=== PATIENT | male | born 1990 | race Caucasian/White ===

== ENCOUNTER 2023-04-08 18:19 | Emergency (ER) | payer OTHER, SELFPAY ==
[2023-04-08 18:25] VITALS: BP 163/105; PULSE 83; RESP 18; TEMP 36.8; O2SAT 100; BMI 27.3
--- NOTE | 2023-04-08 18:52 | ED.ABDPAIN ---
HPI - Abdominal Pain General Time Seen by Provider: 18:52 Date Seen: 04/08/23 Chief Complaint: Abdominal Pain Stated Complaint: Abdominal pain Time Seen by Provider: 04/08/23 18:49 Source: patient and RN notes reviewed Mode of arrival: ambulatory Limitations: no limitations History of Present Illness HPI narrative: Patient is a 33-year-old male coming in with concern of diverticulitis with left-sided lower abdominal pain. He has had pain for at least a few weeks ill, it is intensified, actually had some blood with a stool this morning, had an emesis this morning and did noted a little blood in it. He states around age 17 he was at [facility] and had diverticulitis and had a percutaneous drain due to abscess formation. He believes the drain was in for about 2 weeks. With his current symptoms he states he has a fever when the pain is severe. Basically eating once a day, has not eaten anything today due to the pain in the nausea. He has suspected that he has had other episodes of diverticulitis with some abdominal discomfort, diarrheal or softer stools. He did not come in until now due to insurance issues. He has had no other abdominal surgery. The symptoms have been severe enough that they have been preventing him from working. MD elicited complaint: abdominal pain Related Data Home Medications Medication Instructions Recorded Confirmed No Known Home Medications 04/08/23 04/08/23 Previous Rx's Medication Instructions Recorded amoxicillin 875 mg-potassium 1 tab PO BID #19 tabs 04/08/23 clavulanate 125 mg tablet Allergies Allergy/AdvReac Type Severity Reaction Status Date / Time No Known Drug Allergies Allergy Verified 04/08/23 18:01 Review of Systems Status of ROS Reports: 6 or more systems reviewed and unremarkable except as noted in History and below [facility] Social History Smoking Status: Never smoker Do you use any of these nicotine containing products: None Second hand tobacco smoke exposure: No How often do you have a drink containing alcohol: never How often do you have six or more drinks on one occasion: Never AUDIT-C Alcohol total score: 0 Non-prescribed substance use: denies use service: No Exam Const: Vital Signs, click to edit/add: Vital Signs - 24 hr 04/08/23 18:25 04/08/23 18:57 Temperature 98.2 F Pulse Rate [Right Pulse Oximeter] 83 Respiratory Rate 18 Blood Pressure [Ri ght Upper Arm] 163/105 H Pulse Oximetry 100 98 Oxygen Delivery Me thod Room Air 33-year-old male that is alert, interactive, no apparent distress sitting in his bed in exam room 3. Sclera clear, conjugate gaze, able to speak in complete sentences. Lungs are clear with good air entry, no tachypnea or accessory muscle use. CV regular rate and rhythm, no murmur, normal S1 and S2. Abdomen with diminished bowel sounds but not distended. He has localizing left lower quadrant tenderness without any definite palpable mass, no true rebound or guarding at this time but his pain does localize to the left lower quadrant. Patient was ambulatory into the ED of his own accord. Documenting provider has reviewed patient's vital signs: yes Course Course ED Course: Patient states his pain is low level at this time unless I am pressing on his abdomen. Will initiate normal saline, 4 mg IV Zofran for his nausea which he still has. Will proceed with IV placement for CT abdomen pelvis with IV contrast, he is aware that he will be getting this to further delineate his abdominal pathology. Will also get basic labs. He will let me know if his pain is intensifying. Reevaluation(s) Time of Reevaluation #1: 21:06 Reevaluation #1: Reviewed patient's labs CN CT findings. He has uncomplicated diverticulitis at this point. We will try Augmentin oral outpatient. His white count is normal. Do not feel he needs hospitalization. States he did have a colonoscopy at 1 point. We did discuss follow-up in clinic, he may need to consider repeat colonoscopy once his symptoms have settled appropriately. We also did discuss if he is having recurrent diverticulitis in the same area, surgery for surgical removal of the affected area could be considered. Ultimately this is the surgeons decision but referral to a surgeon could be considered if he has recurrent episodes. Vital Signs Vital signs: Initial Vital Signs Temperature 98.2 F 04/08/23 18:25 Temperature Source Temporal Artery Scan 04/08/23 18:25 Pulse Rate 83 04/08/23 18:25 Respiratory Rate 18 04/08/23 18:25 Blood Pressure 163/105 H 04/08/23 18:25 Blood Pressure Mean 124 H 04/08/23 18:25 Blood Pressure Position Sitting 04/08/23 18:25 Pulse Oximetry 100 04/08/23 18:25 Oxygen Delivery Method Room Air 04/08/23 18:25 Vital Signs Temperature 98.2 F 04/08/23 18:25 Pulse Rate 83 04/08/23 18:25 Respiratory Rate 18 04/08/23 18:25 Blood Pressure 163/105 H 04/08/23 18:25 Pulse Oximetry 100 04/08/23 18:25 Oxygen Delivery Method Room Air 04/08/23 18:25 Temperature 98.2 F 04/08/23 18:25 Pulse Rate 83 04/08/23 18:25 Respiratory Rate 18 04/08/23 18:25 Blood Pressure 163/105 H 04/08/23 18:25 Pulse Oximetry 98 04/08/23 18:57 Oxygen Delivery Method Room Air 04/08/23 18:25 Medications Administered Medications: Generic Name Dose Route Start Last Admin Trade Name Freq PRN Reason Stop Dose Admin Sodium Chloride 1,000 mls @ 500 mls/hr 04/08/23 18:58 04/08/23 19:17 0.9 % Sodium Chloride 1000 Ml IV 04/08/23 20:57 500 mls/hr .Q2H MEREDITH Administration Ondansetron HCl 4 mg 04/08/23 18:58 04/08/23 19:17 Ondansetron 2 Mg/Ml Inj IVP 04/08/23 18:59 4 mg ONCE ONE Administration MDM - Abdominal Pain Lab Data Attestation: I reviewed the patient's lab results. Labs: Lab Results 04/08/23 Range/Units 19:16 WBC 9.38 (4.50-11.00) K/uL RBC 4.96 (4.30-5.90) m/uL Hgb 14.3 (13.5-17.5) gm/dL Hct 43.2 (37.0-53.0) % MCV 87 (80-100) fL MCH 29 (26-34) pg MCHC 33 (32-36) gm/dL RDW Coeff of Simran 12.6 (11.5-15.5) % Plt Count 185 (140-440) K/uL Neut % (Auto) 74.3 H (42.0-72.0) % Lymph % (Auto) 18.7 L (20-44) % [place] % (Auto) 5.7 (0.0-11.0) % Eos % (Auto) 0.5 (0.0-7.0) % Baso % (Auto) 0.3 (0.0-3.0) % Neut # (Auto) 7.00 (1.7-7.0) K/uL Lymph # (Auto) 1.80 (0.90-2.90) K/uL [place] # (Auto) 0.50 (0.00-0.90) K/UL Eos # (Auto) 0.05 (0.00-0.50) K/uL Baso # (Auto) 0.03 (0.00-0.30) K/uL Abs Immat Gran (auto) 0.05 (0.00-0.30) K/uL Imm/Tot Granulo (auto) 0.5 % Sodium 140 (135-149) mmol/L Potassium 3.6 (3.6-5.1) mmol/L Chloride 106 (96-114) mmol/L Carbon Dioxide 25 (20-32) mmol/L Anion Gap 9 (7-15) mEq/L BUN 10 (5-24) mg/dL Creatinine 0.6 (0.5-1.5) mg/dL Estimated Creat Clear 180.81 Estimated GFR 131 ml/min Glucose 96 (60-115) mg/dL Lactate 2.0 H (0.5-1.9) mmol/L Calcium 8.5 (8.4-10.6) mg/dL Total Bilirubin 0.7 (0.1-1.5) mg/dL AST 58 H (12-35) U/L ALT 41 (4-50) U/L Alkaline Phosphatase 74 (40-150) U/L C-Reactive Protein < 0.5 L (0.5-1.0) mg/dL Total Protein 7.8 (6.0-8.3) g/dL Albumin 4.8 (3.3-5.0) g/dL Imaging Data CT scan - abdomen: Attestation: I have reviewed the pertinent imaging results. Radiologist's impression: Patient: NELI ENNIS Facility:?[facility] Patient ID:?[id number] Site Patient ID:?[id number]. Site :?[id number] Study:?[id number] 7:55:38 PM Ordering Physician:Lon Gross Final Report: INDICATION: Left lower quadrant abdominal pain. TECHNIQUE: CT abdomen and pelvis acquired with 93 cc Isovue 370 IV contrast. COMPARISON: None. FINDINGS: Lower chest: Scattered atelectasis. Liver: Unremarkable. Normal in size and attenuation. No suspicious masses. Gallbladder and bile ducts: Unremarkable. No stones or inflammation. No biliary dilatation. Pancreas: Unremarkable. No mass or inflammation. Spleen: Unremarkable. Normal in size. No masses. Adrenal glands: Unremarkable. No nodules. Kidneys: Unremarkable. No suspicious masses, stones, or hydronephrosis. GI tract: Colonic diverticulosis. Mild wall thickening of the proximal sigmoid colon. Normal in caliber. No sign of mass or inflammation. Normal appendix. Vasculature: Abdominal aorta is normal in caliber. Mesenteric arteries are patent. Lymph nodes: No lymphadenopathy. Peritoneum/Abdominal Wall: Unremarkable. No sign of mass or infiltration. No free air or significant free fluid. Pelvis: Unremarkable. Bones: Unremarkable for age. IMPRESSION: Colonic diverticulosis with chronic proximal sigmoid diverticulitis. No definite CT evidence of acute diverticulitis, or drainable fluid collections. Please note that all CT scans at this facility use dose modulation, iterative reconstruction, and/or weight-based dosing when appropriate to reduce radiation dose to as low as reasonably achievable. Dictated by Ernie Mendez MD @ 04/08/2023 8:50:39 PM (Electronic Signature) Discharge Plan Discharge Clinical Impression: Diverticulitis Patient Disposition: Home, Self-Care Condition: Stable Instructions: Diverticulitis (ED), Diverticulitis Diet (ED) Additional Instructions: Need to take oral antibiotics, next dose is due tomorrow morning. Follow handouts. Do recommend recheck with your primary care provider in clinic within the next week. Follow-up colonoscopy and consideration for surgical consultation regarding recurrent diverticulitis needs to be considered. If you are not improving with the oral antibiotics, develops fevers, have increasing abdominal pain, do need to be re-evaluated in the ER. Can use Tylenol and ibuprofen per bottle directions as needed for pain control. Activity Level: Activity as Tolerated Prescriptions: New amoxicillin-pot clavulanate 875-125 mg tablet 1 tab PO BID Qty: 19 0RF No Action No Known Home Medications Follow Up/Referrals: Provider,Not a Local [Primary Care Provider] - Stand Alone Forms: [facility] Info Instructions
[2023-04-08 18:57] VITALS: O2SAT 98
--- NOTE | 2023-04-08 18:58 | CRLHL7_ITS ---
For Patients: As a result of the Century Cures Act, medical imaging exams and procedure reports are released immediately into your electronic medical record. You may view this report before your referring provider. If you have questions, please contact your health care provider. INDICATION: Left lower quadrant abdominal pain. TECHNIQUE: CT abdomen and pelvis acquired with 93 cc Isovue 370 IV contrast. COMPARISON: None. FINDINGS: Lower chest: Scattered atelectasis. Liver: Unremarkable. Normal in size and attenuation. No suspicious masses. Gallbladder and bile ducts: Unremarkable. No stones or inflammation. No biliary dilatation. Pancreas: Unremarkable. No mass or inflammation. Spleen: Unremarkable. Normal in size. No masses. Adrenal glands: Unremarkable. No nodules. Kidneys: Unremarkable. No suspicious masses, stones, or hydronephrosis. GI tract: Colonic diverticulosis. Mild wall thickening of the proximal sigmoid colon. Normal in caliber. No sign of mass or inflammation. Normal appendix. Vasculature: Abdominal aorta is normal in caliber. Mesenteric arteries are patent. Lymph nodes: No lymphadenopathy. Peritoneum/Abdominal Wall: Unremarkable. No sign of mass or infiltration. No free air or significant free fluid. Pelvis: Unremarkable. Bones: Unremarkable for age. IMPRESSION: Colonic diverticulosis with chronic proximal sigmoid diverticulitis. No definite CT evidence of acute diverticulitis, or drainable fluid collections. Please note that all CT scans at this facility use dose modulation, iterative reconstruction, and/or weight-based dosing when appropriate to reduce radiation dose to as low as reasonably achievable. Dictated by Ernie Mendez MD @ 04/08/2023 8:50:39 PM (Electronically Signed)
[2023-04-08] MEDS: 0.9 % SODIUM CHLORIDE 1000 ml 1,000 ML 500 ML IV (19:17)
[2023-04-08] MEDS: ONDANSETRON 2 MG/ML inj 4 MG IVP (19:17)
[2023-04-08 19:27] LABS: Basophils Absolute Auto 0.03 K/uL (0.00-0.30); Basophils Percent Auto 0.3 % (0.0-3.0); Eosinophils Absolute Auto 0.05 K/uL (0.00-0.50); Eosinophils Percent Auto 0.5 % (0.0-7.0); Hematocrit 43.2 % (37.0-53.0); Hemoglobin* 14.3 gm/dL (13.5-17.5); Immature Granulocytes Abs Auto 0.05 K/uL (0.00-0.30); Immature Granulocytes Pct Auto 0.5 %; Lymphocytes Percent Auto 18.7 % (20-44); Mean Corpuscular HGB Conc 33 gm/dL (32-36); Mean Corpuscular Hemoglobin 29 pg (26-34); Mean Corpuscular Volume 87 fL (80-100); Monocytes Percent Auto 5.7 % (0.0-11.0); Neutrophils Percent Auto 74.3 % (42.0-72.0); Platelet Count* 185 K/uL (140-440); RDW Coefficient of Variation % 12.6 % (11.5-15.5); Red Blood Count 4.96 m/uL (4.30-5.90); White Blood Count* 9.38 K/uL (4.50-11.00)
[2023-04-08 19:33] LABS: Slide Review Reflex No
[2023-04-08 19:39] LABS: Albumin* 4.8 g/dL (3.3-5.0); Chloride* 106 mmol/L (96-114); Sodium* 140 mmol/L (135-149)
[2023-04-08 19:40] LABS: Potassium* 3.6 mmol/L (3.6-5.1)
[2023-04-08 19:42] LABS: Creatinine* 0.6 mg/dL (0.5-1.5); Est. Creatinine Clearance* 180.81; Estimated Glomerular Filt Rate 131 ml/min
[2023-04-08 19:43] LABS: Alanine Aminotransferase* 41 U/L (4-50); Alkaline Phosphatase* 74 U/L (40-150); Anion Gap 9 mEq/L (7-15); Aspartate Amino Transferase* 58 U/L (12-35); Bilirubin Total* 0.7 mg/dL (0.1-1.5); Blood Urea Nitrogen* 10 mg/dL (5-24); Calcium* 8.5 mg/dL (8.4-10.6); Carbon Dioxide* 25 mmol/L (20-32); Glucose* 96 mg/dL (60-115); Total Protein* 7.8 g/dL (6.0-8.3)
[2023-04-08 19:46] LABS: C Reactive Protein* < 0.5 mg/dL (0.5-1.0)
[2023-04-08] MEDS: AMOXICILLIN/CLAVULANATE 875 mg/125 mg TABLET PO (21:20)
== END 2023-04-08 21:22 | disposition home or self-care (01) ==
PROVIDERS: Emergency Provider Family Medicine
DX: K57.92 Diverticulitis of intestine, part unspecified, without perforation or abscess without bleeding (principal)
CPT/HCPCS: 36415; 74177; 80053; 83605; 85025; 86140; 94761; 96361; 96374; 99284; 99285; A9270; J2405; J7030; Q9967

== ENCOUNTER 2023-07-04 19:01 | Emergency (ER) | payer OTHER, SELFPAY ==
[2023-07-04 19:10] VITALS: BP 148/89; PULSE 117; RESP 18; TEMP 37.6; O2SAT 99; BMI 27.3
--- NOTE | 2023-07-04 19:33 | ED_ITS ---
HPI - Abdominal Pain General Time Seen by Provider: 19:33 Date Seen: 07/04/23 Chief Complaint: Abdominal Pain Stated Complaint: abdominal pain Time Seen by Provider: 07/04/23 19:33 Source: patient and RN notes reviewed Mode of arrival: ambulatory Limitations: no limitations History of Present Illness HPI narrative: The patient is a very pleasant 33-year-old gentleman with a history of complicated diverticulitis at the age of 17, percutaneous drainage for 2 weeks at that time who comes to the emergency room for evaluation regarding right lower quadrant pain. Patient noted the onset of pain near the umbilicus yesterday that he describes as sharp. Today he has pain in the right lower quadrant. He notes that he tried to work but even moving or riding in his truck he has increased discomfort. He is noted that he has had constipation over the past couple days. He states that abdominal pain is not unusual for him but he usually feels it on the left. He states that the ages 17 he had diverticulitis with an abscess that resulted in hospitalization, insertion of her percutaneous drain, antibiotics and then discharged home on pain medicine and antibiotics. His last diverticulitis flare was in April which was treated with Augmentin. Patient does feel warm but does not know if he is been running a fever. He states that he has not really been eating or drinking over the last 2 days. He states that he has pain persistently and was told that this was scar tissue. He states he usually tries to work through it but because this pain was unusual for him he wanted to have it checked out. At home he is youngest son has RSV and the other children have another did virus but he states that he has no symptoms including no evidence of a cough runny nose. Patient had been sober for quite some time and then notes occasional drinking and states that after that he will have shakiness and feel poorly and experience right upper quadrant pain. He has not had any alcohol over the past 8 weeks. He notes that when he was very young he had an alcohol problem. Patient denies alcohol abuse at this time and denies having any addiction to oxycodone which she used for treatment of his diverticular pain in his teenage years. Movement definitely increases his discomfort. Sitting still is the best position for him. Related Data Home Medications Medication Instructions Recorded Confirmed No Known Home Medications 04/08/23 07/04/23 Allergies Allergy/AdvReac Type Severity Reaction Status Date / Time No Known Drug Allergies Allergy Verified 07/04/23 20:12 Review of Systems Status of ROS Reports: 10 or more systems reviewed and unremarkable except as noted in History and below Const Reports: chills and fatigue; Denies: fever ENMT Denies: neck pain, throat swelling, nasal discharge or nasal congestion Cardio Denies: chest pain or shortness of breath with exertion Resp Denies: shortness of breath or cough GI Reports: abdominal pain, nausea, constipation and mucus in stool; Denies: vomiting or diarrhea Denies: painful urination Musculo Denies: back pain or neck pain Endo Reports: fatigue Allergy/Immuno Denies: throat swelling PFSH PFSH Social History Smoking Status: Current every day smoker Second hand tobacco smoke exposure: No How often do you have a drink containing alcohol: never How often do you have six or more drinks on one occasion: Never AUDIT-C Alcohol total score: 0 Non-prescribed substance use: denies use service: No Exam Narrative: Exam Narrative: Alert and oriented. Stoic in appearance and limiting movement. However very cooperative. External ears eyes nose clear. Oral cavity with tacky mucous membranes. Neck is supple without lymphadenopathy. Range of motion is full. Heart with a tachycardic rate but normal rhythm. Lungs are clear bilaterally. Abdomen shows right lower quadrant tenderness positive for rebound. Straight leg raise increases discomfort. Positive for pain in the right lower quadrant with percussion over the right CVA. He is able to move all extremities. No unusual rashes are noted. Const: Vital Signs, click to edit/add: Vital Signs - 24 hr 07/04/23 19:10 07/04/23 21:26 Temperature 99.7 F H Pulse Rate [Left P ulse Oximeter] 117 H 82 Respiratory Rate 18 18 Blood Pressure [Ri ght Upper Arm] 148/89 H 136/87 Pulse Oximetry 99 97 Oxygen Delivery Me thod Room Air Room Air Documenting provider has reviewed patient's vital signs: yes Course Course ED Course: Differential diagnosis includes but is not limited to colitis, constipation, appendicitis, internal hernia, small-bowel obstruction, diverticulitis, ureteral colic/nephrolithiasis. Patient will have IV inserted and be given 1 L of normal saline, Toradol 15 mg, Zofran 4 mg IV. Will proceed with CT of the abdomen and pelvis with contrast. Will check CBC, comprehensive panel, CRP, urinalysis as well as COVID/influenza/RSV. Reevaluation(s) Reevaluation #1: Patient notes improvement of his abdominal pain with Toradol. In addition pulse has now normalized to 82 after 1 L of normal saline. Vital Signs Vital signs: Initial Vital Signs Temperature 99.7 F H 07/04/23 19:10 Temperature Source Temporal Artery Scan 07/04/23 19:10 Pulse Rate 117 H 07/04/23 19:10 Respiratory Rate 18 07/04/23 19:10 Blood Pressure 148/89 H 07/04/23 19:10 Blood Pressure Mean 108 H 07/04/23 19:10 Blood Pressure Position Sitting 07/04/23 19:10 Pulse Oximetry 99 07/04/23 19:10 Oxygen Delivery Method Room Air 07/04/23 19:10 Vital Signs Temperature 99.7 F H 07/04/23 19:10 Pulse Rate 117 H 07/04/23 19:10 Respiratory Rate 18 07/04/23 19:10 Blood Pressure 148/89 H 07/04/23 19:10 Pulse Oximetry 99 07/04/23 19:10 Oxygen Delivery Method Room Air 07/04/23 19:10 Temperature 99.7 F H 07/04/23 19:10 Pulse Rate 82 07/04/23 21:26 Respiratory Rate 18 07/04/23 21:26 Blood Pressure 136/87 07/04/23 21:26 Pulse Oximetry 97 07/04/23 21:26 Oxygen Delivery Method Room Air 07/04/23 21:26 Medications Administered Medications: Discontinued Medications Generic Name Dose Route Start Last Admin Trade Name Freq PRN Reason Stop Dose Admin Sodium Chloride 1,000 mls @ 1,000 mls/hr 07/04/23 19:44 07/04/23 20:45 0.9 % Sodium Chloride 1000 Ml IV 07/04/23 20:43 Infused .Q1H MEREDITH Infusion Ketorolac Tromethamine 15 mg 07/04/23 19:44 07/04/23 20:04 Ketorolac 15 Mg/Ml Inj IVP 07/04/23 19:45 15 mg ONCE ONE Administration Ondansetron HCl 4 mg 07/04/23 19:44 07/04/23 20:04 Ondansetron 2 Mg/Ml Inj IVP 07/04/23 19:45 4 mg ONCE ONE Administration MDM - Abdominal Pain MDM Narrative Medical decision making narrative: 1. Sigmoid diverticulitis-no evidence of abscess or perforation. CRP elevated at 8.4 and white cell count is 11.29. Will place patient on Augmentin for treatment at this time. This has worked well for him in the past. Given patient's history of diverticulitis with fairly persistent chronic pain over the years I do suggest that he follow-up with our surgeons. At the very least he will need a colonoscopy to evaluate this area of recurrent infection. He may need surgery for correction. I was surprised that the appendix was normal tonight as patient had right lower quadrant pain which is unusual for him. Appendix was seen normal by our radiologist. 2. Dehydration-patient had minimal p.o. intake over the last few days. 1 L of normal saline was given and tachycardia resolved. I do not think tachycardia was secondary to a septic type picture. 3. RSV-patient was told he had RSV. He is asymptomatic at this time. Positive contact in his son. 2. Disposition-home at this time. Patient will have Augmentin 875 mg p.o. b.i.d. times 10 days. Zofran 4 mg ODT Q 8-12 hours p.r.n. nausea 10., [place] 5/325 1-2 tablets q.4-6 hours p.r.n. 12. With no refills. These 3 medications were given via [employer]. Patient is to return to the emergency room for elevated fever, vomiting, worsening symptoms as needed. He has also been instructed to start on a stool softener as he will be using [place]. Medical Records Attestation: I reviewed the patient's medical records. Lab Data Attestation: I reviewed the patient's lab results. Labs: Lab Results 07/04/23 07/04/23 Range/Units 20:00 20:00 WBC 11.29 H (4.50-11.00) K/uL RBC 5.09 (4.30-5.90) m/uL Hgb 14.9 (13.5-17.5) gm/dL Hct 44.5 (37.0-53.0) % MCV 87 (80-100) fL MCH 29 (26-34) pg MCHC 34 (32-36) gm/dL RDW Coeff of Simran 12.5 (11.5-15.5) % Plt Count 181 (140-440) K/uL Neut % (Auto) 79.9 H (42.0-72.0) % Lymph % (Auto) 10.7 L (20-44) % [place] % (Auto) 8.8 (0.0-11.0) % Eos % (Auto) 0.3 (0.0-7.0) % Baso % (Auto) 0.1 (0.0-3.0) % Neut # (Auto) 9.00 H (1.7-7.0) K/uL Lymph # (Auto) 1.20 (0.90-2.90) K/uL [place] # (Auto) 1.00 H (0.00-0.90) K/UL Eos # (Auto) 0.00 (0.00-0.50) K/uL Baso # (Auto) 0.00 (0.00-0.30) K/uL Abs Immat Gran (auto) 0.00 (0.00-0.30) K/uL Imm/Tot Granulo (auto) 0.2 % Sodium 138 (135-149) mmol/L Potassium 3.6 (3.6-5.1) mmol/L Chloride 103 (96-114) mmol/L Carbon Dioxide 24 (20-32) mmol/L Anion Gap 11 (7-15) mEq/L BUN 16 (5-24) mg/dL Creatinine 0.7 (0.5-1.5) mg/dL Estimated Creat Clear 154.98 Estimated GFR 125 ml/min Glucose 108 (60-115) mg/dL Lactate 0.8 (0.5-1.9) mmol/L Calcium 9.4 (8.4-10.6) mg/dL Total Bilirubin 1.9 H (0.1-1.5) mg/dL AST 28 (12-35) U/L ALT 35 (4-50) U/L Alkaline Phosphatase 60 (40-150) U/L C-Reactive Protein 8.4 H Cancelled (0.5-1.0) mg/dL Total Protein 8.7 H (6.0-8.3) g/dL Albumin 5.2 H (3.3-5.0) g/dL Lipase 28 (23-300) U/L SARS-CoV-2 (PCR) Negative SARS-CoV-2 (Negative) Influenza Type A (PCR) Negative PCR FLU A (Negative) Influenza Type B (PCR) Negative PCR FLU B (Negative) RSV (PCR) POSITIVE PCR RSV A (Negative) Imaging Data CT scan - abdomen: Attestation: I have reviewed the pertinent imaging results. Radiologist's impression: Lower chest: Unremarkable. Liver: Unremarkable. Normal in size and attenuation. No suspicious masses. Gallbladder and bile ducts: Unremarkable. No stones or inflammation. No biliary dilatation. Pancreas: Unremarkable. No mass or inflammation. Spleen: Unremarkable. Normal in size. No masses. Adrenal glands: Unremarkable. No nodules. Kidneys: Unremarkable. No suspicious masses, stones, or hydronephrosis. GI tract: Acute inflammation of a diverticulum in the sigmoid colon. Remainder of the GI tract is unremarkable. Normal appendix. Vasculature: Abdominal aorta is normal in caliber. Mesenteric arteries are patent. Lymph nodes: No lymphadenopathy. Peritoneum/Abdominal Wall: Unremarkable. No sign of mass or infiltration. No free air or significant free fluid. Pelvis: Unremarkable. Bones: Unremarkable for age. IMPRESSION: Acute uncomplicated sigmoid diverticulitis. Discharge Plan Discharge Clinical Impression: Diverticulitis Patient Disposition: Home, Self-Care Condition: Improved Additional Instructions: Start antibiotic Augmentin tonight for the treatment of diverticulitis. Zofran is an anti nausea medicine that you may use as needed. Try to push fluids and stay hydrated. [place] also known as hydrocodone and Tylenol may be used as needed for pain sparingly. This is a narcotic medication and therefore can cause addiction. It will also cause constipation and thus I suggest you start on a stool softener such as MiraLax or Colace. Follow-up with our surgeons. All of them are fantastic. Prem Srivastava or Reggie. You will likely need a colonoscopy after you have healed for this particular infection. Return to the emergency room for fever, worsening pain, vomiting and as needed. Prescriptions: No Action No Known Home Medications Follow Up/Referrals: Provider,Not a Local [Primary Care Provider] - Stand Alone Forms: [employer] Info Instructions
--- NOTE | 2023-07-04 19:44 | CRLHL7_ITS ---
For Patients: As a result of the Century Cures Act, medical imaging exams and procedure reports are released immediately into your electronic medical record. You may view this report before your referring provider. If you have questions, please contact your health care provider. INDICATION: Right lower quadrant abdomen pain. TECHNIQUE: CT abdomen and pelvis acquired with 93 cc Isovue 370 IV contrast. COMPARISON: None. FINDINGS: Lower chest: Unremarkable. Liver: Unremarkable. Normal in size and attenuation. No suspicious masses. Gallbladder and bile ducts: Unremarkable. No stones or inflammation. No biliary dilatation. Pancreas: Unremarkable. No mass or inflammation. Spleen: Unremarkable. Normal in size. No masses. Adrenal glands: Unremarkable. No nodules. Kidneys: Unremarkable. No suspicious masses, stones, or hydronephrosis. GI tract: Acute inflammation of a diverticulum in the sigmoid colon. Remainder of the GI tract is unremarkable. Normal appendix. Vasculature: Abdominal aorta is normal in caliber. Mesenteric arteries are patent. Lymph nodes: No lymphadenopathy. Peritoneum/Abdominal Wall: Unremarkable. No sign of mass or infiltration. No free air or significant free fluid. Pelvis: Unremarkable. Bones: Unremarkable for age. IMPRESSION: Acute uncomplicated sigmoid diverticulitis. Please note that all CT scans at this facility use dose modulation, iterative reconstruction, and/or weight-based dosing when appropriate to reduce radiation dose to as low as reasonably achievable. Dictated by Amos Zavala MD @ 07/04/2023 9:11:53 PM (Electronically Signed)
[2023-07-04] MEDS: ONDANSETRON 2 MG/ML inj 4 MG IVP (20:04)
[2023-07-04] MEDS: 0.9 % SODIUM CHLORIDE 1000 ml 1,000 ML IV (20:04)
[2023-07-04] MEDS: KETOROLAC 15 MG/ML inj IVP (20:04)
[2023-07-04 20:05] LABS: Lactate* 0.8 mmol/L (0.5-1.9)
[2023-07-04 20:08] LABS: Basophils Percent Auto 0.1 % (0.0-3.0); Eosinophils Percent Auto 0.3 % (0.0-7.0); Hematocrit 44.5 % (37.0-53.0); Hemoglobin* 14.9 gm/dL (13.5-17.5); Immature Granulocytes Pct Auto 0.2 %; Lymphocytes Percent Auto 10.7 % (20-44); Mean Corpuscular HGB Conc 34 gm/dL (32-36); Mean Corpuscular Hemoglobin 29 pg (26-34); Mean Corpuscular Volume 87 fL (80-100); Monocytes Percent Auto 8.8 % (0.0-11.0); Neutrophils Percent Auto 79.9 % (42.0-72.0); Platelet Count* 181 K/uL (140-440); RDW Coefficient of Variation % 12.5 % (11.5-15.5); Red Blood Count 5.09 m/uL (4.30-5.90); White Blood Count* 11.29 K/uL (4.50-11.00)
[2023-07-04 20:17] LABS: Slide Review Reflex No
[2023-07-04 20:27] LABS: Albumin* 5.2 g/dL (3.3-5.0); Chloride* 103 mmol/L (96-114)
[2023-07-04 20:28] LABS: Potassium* 3.6 mmol/L (3.6-5.1); Sodium* 138 mmol/L (135-149)
[2023-07-04 20:30] LABS: Alkaline Phosphatase* 60 U/L (40-150); Anion Gap 11 mEq/L (7-15); Aspartate Amino Transferase* 28 U/L (12-35); Bilirubin Total* 1.9 mg/dL (0.1-1.5); Carbon Dioxide* 24 mmol/L (20-32); Creatinine* 0.7 mg/dL (0.5-1.5); Est. Creatinine Clearance* 154.98; Estimated Glomerular Filt Rate 125 ml/min; Total Protein* 8.7 g/dL (6.0-8.3)
[2023-07-04 20:31] LABS: Alanine Aminotransferase* 35 U/L (4-50); Blood Urea Nitrogen* 16 mg/dL (5-24); Calcium* 9.4 mg/dL (8.4-10.6); Glucose* 108 mg/dL (60-115); Lipase* 28 U/L (23-300)
[2023-07-04 20:33] LABS: C Reactive Protein* 8.4 mg/dL (0.5-1.0)
[2023-07-04 20:50] LABS: PCR FLU A Negative PCR FLU A (Negative); PCR FLU B Negative PCR FLU B (Negative); PCR RSV POSITIVE PCR RSV (Negative); SARS PCR* Negative SARS-CoV-2 (Negative)
[2023-07-04 21:26] VITALS: BP 136/87; PULSE 82; RESP 18; O2SAT 97
== END 2023-07-04 21:35 | disposition home or self-care (01) ==
PROVIDERS: Emergency Provider Family Medicine
DX: K57.32 Diverticulitis of large intestine without perforation or abscess without bleeding (principal)
CPT/HCPCS: 36415; 74177; 80053; 81001; 83605; 83690; 85025; 86140; 87631; 96374; 96375; 99284; J1885; J2405; J7030; Q9967

== ENCOUNTER 2023-07-09 01:40 | Emergency (ER) | payer OTHER, SELFPAY ==
--- NOTE | 2023-07-09 01:44 | ED.GENADULT ---
HPI - General Adult General Time Seen by Provider: 01:45 Date Seen: 07/09/23 Chief complaint: Abdominal Pain Stated complaint: Abdominal Pain Time Seen by Provider: 07/09/23 01:44 Source: patient, RN notes reviewed and old records reviewed Mode of arrival: ambulatory Limitations: no limitations History of Present Illness HPI narrative: 33-year-old male who presents today with abdominal pain. Review of prior record from July 04 shows the patient seen with abdominal pain, at that time leukocytosis with white blood cell count of 11.29, CT scan with acute diverticulitis. Patient presents today with continued abdominal pain. Patient says he was prescribed pain medication from the emergency department when he was here on July 04 and finish that after 2 days. He has not taken any Tylenol or ibuprofen for his symptoms. He reports a longstanding history of chronic abdominal pain and has been prescribed dicyclomine in the past but has not taken that for many years. Denies diarrhea, nausea and decreased oral intake as he feels like that makes his pain worse. No urinary symptoms. Related Data Home Medications Medication Instructions Recorded Confirmed amoxicillin 875 mg-potassium 1 tab PO BID 07/09/23 07/09/23 clavulanate 125 mg tablet Allergies Allergy/AdvReac Type Severity Reaction Status Date / Time No Known Drug Allergies Allergy Verified 07/09/23 01:47 [facility] Social History Smoking Status: Current every day smoker Second hand tobacco smoke exposure: No How often do you have a drink containing alcohol: never How often do you have six or more drinks on one occasion: Never AUDIT-C Alcohol total score: 0 Non-prescribed substance use: denies use service: No Exam Narrative: Exam Narrative: General: Well-developed and well-nourished, no acute distress Head: Atraumatic and normocephalic Eyes: Pupils are equal reactive, extraocular motions intact, conjunctiva clear ENT: External nose and ears are normal, posterior pharynx without erythema or exudate Neck: No midline cervical tenderness, full spontaneous range of motion the neck, trachea midline, no adenopathy Heart: Regular rate and rhythm no murmurs or thrills Lungs: Clear to auscultation bilaterally without wheezes or crackles Abdomen: Soft, suprapubic and periumbilical tenderness, nondistended with active bowel sounds Musculoskeletal: No tenderness, deformity, or edema Neurologic: Awake, alert, and oriented x3, no gross focal neurologic deficits, cranial nerves intact as tested Psych: Mood and affect are appropriate Skin: No rashes Const: Vital Signs, click to edit/add: Vital Signs - 24 hr 07/09/23 01:47 Temperature 98.7 F Pulse Rate [Pulse Oximeter] 95 Respiratory Rate 16 Blood Pressure [Ri ght Upper Arm] 155/96 H Pulse Oximetry 100 Oxygen Delivery Me thod Room Air Course Course ED Course: Patient seen examined, prior records reviewed. Patient presents today with abdominal pain, recent diagnosis of diverticulitis and has been on Augmentin for this. Presents today with continued low abdominal pain, constant but flares every 30-40 minutes. On exam, appears comfortable but suprapubic and periumbilical tenderness. Symptoms may be from continue diverticulitis but concern for perforation or abscess given continued pain in spite of antibiotics which he has been taking for 5 days. Has not taken any Tylenol or ibuprofen for this and request nonnarcotic pain medications here. Labs ordered along with repeat CT scan Reevaluation(s) Time of Reevaluation #1: 02:31 Reevaluation #1: Labs ordered and independently interpreted by me with normal CBC, white count has improved from prior. CT scan independently interpreted by me demonstrates acute sigmoid diverticulitis overall unchanged from 5 days ago. Time of Reevaluation #2: 03:08 Reevaluation #2: Patient remains stable in the emergency department. Patient will be discharged with pain medication and will switch from Augmentin to ciprofloxacin and Flagyl due to failure to improve on antibiotics. Vital Signs Vital signs: Initial Vital Signs Temperature 98.7 F 07/09/23 01:47 Temperature Source Temporal Artery Scan 07/09/23 01:47 Pulse Rate 95 07/09/23 01:47 Pulse Strength 3+ Normal 07/09/23 01:47 Respiratory Rate 16 07/09/23 01:47 Blood Pressure 155/96 H 07/09/23 01:47 Blood Pressure Mean 115 H 07/09/23 01:47 Pulse Oximetry 100 07/09/23 01:47 Oxygen Delivery Method Room Air 07/09/23 01:47 Vital Signs Temperature 98.7 F 07/09/23 01:47 Pulse Rate 95 07/09/23 01:47 Respiratory Rate 16 07/09/23 01:47 Blood Pressure 155/96 H 07/09/23 01:47 Pulse Oximetry 100 07/09/23 01:47 Oxygen Delivery Method Room Air 07/09/23 01:47 Temperature 98.7 F 07/09/23 01:47 Pulse Rate 95 07/09/23 01:47 Respiratory Rate 16 07/09/23 01:47 Blood Pressure 155/96 H 07/09/23 01:47 Pulse Oximetry 100 07/09/23 01:47 Oxygen Delivery Method Room Air 07/09/23 01:47 Medications Administered Medications: Discontinued Medications Generic Name Dose Route Start Last Admin Trade Name Freq PRN Reason Stop Dose Admin Sodium Chloride 1,000 mls @ 1,000 mls/hr 07/09/23 02:00 07/09/23 03:12 0.9 % Sodium Chloride 1000 Ml IV 07/09/23 02:59 Infused .Q1H MEREDITH Infusion Ketorolac Tromethamine 15 mg 07/09/23 01:52 07/09/23 02:06 Ketorolac 15 Mg/Ml Inj IVP 07/09/23 01:53 15 mg ONCE ONE Administration Ondansetron HCl 4 mg 07/09/23 01:52 07/09/23 02:06 Ondansetron 2 Mg/Ml Inj IVP 07/09/23 01:53 4 mg ONCE ONE Administration Medical Decision Making Lab Data Labs: Lab Results 07/09/23 Range/Units 02:00 WBC 8.45 (4.50-11.00) K/uL RBC 4.43 (4.30-5.90) m/uL Hgb 13.0 L (13.5-17.5) gm/dL Hct 38.6 (37.0-53.0) % MCV 87 (80-100) fL MCH 29 (26-34) pg MCHC 34 (32-36) gm/dL RDW Coeff of Simran 12.2 (11.5-15.5) % Plt Count 234 (140-440) K/uL Neut % (Auto) 74.1 H (42.0-72.0) % Lymph % (Auto) 16.9 L (20-44) % Riley % (Auto) 7.5 (0.0-11.0) % Eos % (Auto) 0.7 (0.0-7.0) % Baso % (Auto) 0.4 (0.0-3.0) % Neut # (Auto) 6.30 (1.7-7.0) K/uL Lymph # (Auto) 1.40 (0.90-2.90) K/uL Riley # (Auto) 0.60 (0.00-0.90) K/UL Eos # (Auto) 0.06 (0.00-0.50) K/uL Baso # (Auto) 0.03 (0.00-0.30) K/uL Abs Immat Gran (auto) 0.03 (0.00-0.30) K/uL Imm/Tot Granulo (auto) 0.4 % Sodium 142 (135-149) mmol/L Potassium 3.2 L (3.6-5.1) mmol/L Chloride 106 (96-114) mmol/L Carbon Dioxide 23 (20-32) mmol/L Anion Gap 13 (7-15) mEq/L BUN 16 (5-24) mg/dL Creatinine 0.6 (0.5-1.5) mg/dL Estimated Creat Clear 180.81 Estimated GFR 131 ml/min Glucose 133 H (60-115) mg/dL Calcium 9.0 (8.4-10.6) mg/dL Discharge Plan Discharge Clinical Impression: Diverticulitis Patient Disposition: Home, Self-Care Condition: Stable Instructions: Diverticulitis (ED) Additional Instructions: Stop Augmentin. Take Flagyl and Ciprofloxacin as prescirbed. Activity Level: Activity as Tolerated Discharge Diet: Regular Prescriptions: No Action amoxicillin-pot clavulanate 875-125 mg tablet 1 tab PO BID Follow Up/Referrals: Provider,Not a Local [Primary Care Provider] - Stand Alone Forms: [employer] Info Instructions
[2023-07-09 01:47] VITALS: BP 155/96; PULSE 95; RESP 16; TEMP 37.1; O2SAT 100; BMI 27.3
--- NOTE | 2023-07-09 01:52 | CRLHL7_ITS ---
For Patients: As a result of the Century Cures Act, medical imaging exams and procedure reports are released immediately into your electronic medical record. You may view this report before your referring provider. If you have questions, please contact your health care provider. INDICATION: Recent diagnosis of diverticulitis, increasing pain, concern for perforation TECHNIQUE: CT abdomen and pelvis acquired with 93 milliliters Isovue 370 IV contrast. COMPARISON: CT abdomen pelvis performed 07/04/2023 FINDINGS: Lower chest: No acute abnormality appreciated. Hepatobiliary: No acute abnormality appreciated. Spleen: Unremarkable. Pancreas: Unremarkable. Adrenal glands: Unremarkable. Kidneys: No acute parenchymal abnormality. No calculi. No hydronephrosis. Bowel: No obstruction. Redemonstration of segmental wall thickening and marked adjacent stranding centered on a diverticulum within the sigmoid colon compatible with acute diverticulitis. This appears essentially unchanged compared to prior examination performed 07/04/2023. No new areas of perienteric or pericolonic stranding are appreciated. Vascular: No acute abnormality appreciated. Lymph nodes: Shotty mesenteric nodes. Peritoneum: No free air. No free fluid. No organized abscess. : Unchanged. Soft tissues: Unremarkable. Bones: No acute abnormality appreciated. IMPRESSION: Acute sigmoid diverticulitis, overall appearing unchanged from examination performed 07/04/2023. Specifically, there is no evidence of free air, free-fluid, or organized abscess at this time. Please note that all CT scans at this facility use dose modulation, iterative reconstruction, and/or weight-based dosing when appropriate to reduce radiation dose to as low as reasonably achievable. Dictated by Uriah Jones MD @ 07/09/2023 3:01:13 AM (Electronically Signed)
[2023-07-09] MEDS: ONDANSETRON 2 MG/ML inj 4 MG IVP (02:06)
[2023-07-09] MEDS: 0.9 % SODIUM CHLORIDE 1000 ml 1,000 ML IV (02:06)
[2023-07-09] MEDS: KETOROLAC 15 MG/ML inj IVP (02:06)
[2023-07-09 02:13] LABS: Basophils Absolute Auto 0.03 K/uL (0.00-0.30); Basophils Percent Auto 0.4 % (0.0-3.0); Eosinophils Absolute Auto 0.06 K/uL (0.00-0.50); Eosinophils Percent Auto 0.7 % (0.0-7.0); Hematocrit 38.6 % (37.0-53.0); Immature Granulocytes Abs Auto 0.03 K/uL (0.00-0.30); Immature Granulocytes Pct Auto 0.4 %; Lymphocytes Percent Auto 16.9 % (20-44); Mean Corpuscular HGB Conc 34 gm/dL (32-36); Mean Corpuscular Hemoglobin 29 pg (26-34); Mean Corpuscular Volume 87 fL (80-100); Monocytes Percent Auto 7.5 % (0.0-11.0); Neutrophils Percent Auto 74.1 % (42.0-72.0); Platelet Count* 234 K/uL (140-440); RDW Coefficient of Variation % 12.2 % (11.5-15.5); Red Blood Count 4.43 m/uL (4.30-5.90); White Blood Count* 8.45 K/uL (4.50-11.00)
[2023-07-09 02:15] LABS: Slide Review Reflex No
[2023-07-09 02:24] LABS: Chloride* 106 mmol/L (96-114); Potassium* 3.2 mmol/L (3.6-5.1); Sodium* 142 mmol/L (135-149)
[2023-07-09 02:27] LABS: Anion Gap 13 mEq/L (7-15); Carbon Dioxide* 23 mmol/L (20-32); Creatinine* 0.6 mg/dL (0.5-1.5); Est. Creatinine Clearance* 180.81; Estimated Glomerular Filt Rate 131 ml/min
[2023-07-09 02:28] LABS: Blood Urea Nitrogen* 16 mg/dL (5-24); Glucose* 133 mg/dL (60-115)
== END 2023-07-09 03:30 | disposition home or self-care (01) ==
PROVIDERS: Emergency Provider Family Medicine
DX: K57.92 Diverticulitis of intestine, part unspecified, without perforation or abscess without bleeding (principal)
CPT/HCPCS: 36415; 74177; 80048; 85025; 96361; 96374; 96375; 99284; 99285; J1885; J2405; J7030; Q9967

== ENCOUNTER 2023-10-29 23:46 | Emergency (ER) | payer OTHER, SELFPAY ==
[2023-10-29 23:56] VITALS: BP 135/75; PULSE 89; RESP 20; TEMP 37.3; O2SAT 99; BMI 25.7
[2023-10-30 00:13] LABS: Appearance Urine Cloudy (Clear); Bilirubin Urine 1+ (Negative); Blood Urine 3+ (Negative); Color Urine Yellow (Yellow); Glucose Urine Negative (Negative); Ketones Urine 4+ (Negative); Leukocyte Esterase Urine Negative (Negative); Nitrite Urine Negative (Negative); Protein Urine 3+ (Negative); Specific Gravity Urine >= 1.030 (1.000-1.030); Urobilinogen Urine 0.2 (0.2-1.0)
[2023-10-30 00:25] LABS: Amorphous Sediment Urine Few; Bacteria Urine Moderate; RBC Urine 50-100 (0-2); Squamous Epithelial Cell Urine Few (None-Few)
--- NOTE | 2023-10-30 00:51 | CRLHL7_ITS ---
For Patients: As a result of the Century Cures Act, medical imaging exams and procedure reports are released immediately into your electronic medical record. You may view this report before your referring provider. If you have questions, please contact your health care provider. INDICATION: Hematuria, suspect stone. TECHNIQUE: CT of the abdomen and pelvis without IV contrast. Coronal and sagittal reconstructions. COMPARISON: CT of the abdomen and pelvis 07/09/2023. FINDINGS: The unenhanced liver, gallbladder, spleen, pancreas, and adrenal glands are normal in appearance. No biliary dilation. No hydronephrosis or ureteral dilation. No obstructing urinary calculi identified. Minimal circumferential bladder wall thickening and prominent perivesical fat stranding suggesting inflammation. Focus of gas in the bladder. Nonenlarged prostate gland. No small bowel dilation. Moderate amount of stool throughout the colon. Colonic diverticulosis. There is persistent wall thickening of the proximal sigmoid colon with mild surrounding inflammatory fat stranding. The degree of inflammation is decreased compared to prior exam. Findings suggest ongoing mild acute diverticulitis. The inflamed segment of colon abuts the left bladder dome with questionable thin intervening soft tissue tract (series 4, image 52). Given chronic inflammation in this region and presence of gas in the bladder, a colovesical fistula cannot be excluded. Negative appendix. No intraperitoneal free air or fluid. No suspicious fluid collections. Mildly prominent periaortic and bilateral pelvic sidewall lymph nodes are likely reactive. No lymphadenopathy by size criteria. Tiny fat containing umbilical hernia. The lung bases are clear. The bones are unremarkable. IMPRESSION: 1. Ongoing mild acute diverticulitis changes in the proximal sigmoid colon. This abuts the left bladder dome with questionable thin intervening soft tissue tract. 2. Inflammatory changes of the bladder with intraluminal gas. Differential considerations include gas-forming infectious process, recent instrumentation, or colovesical fistula introducing gas into the bladder. 3. No hydronephrosis or obstructing urinary calculi. Please note that all CT scans at this facility use dose modulation, iterative reconstruction, and/or weight-based dosing when appropriate to reduce radiation dose to as low as reasonably achievable. Dictated by Sultana Hayes MD @ 10/30/2023 1:46:24 AM (Electronically Signed)
[2023-10-30] MEDS: KETOROLAC 15 MG/ML inj IVP (01:03)
[2023-10-30 01:07] LABS: Basophils Absolute Auto 0.02 K/uL (0.00-0.30); Basophils Percent Auto 0.2 % (0.0-3.0); Eosinophils Absolute Auto 0.08 K/uL (0.00-0.50); Eosinophils Percent Auto 0.8 % (0.0-7.0); Hematocrit 37.5 % (37.0-53.0); Hemoglobin* 12.6 gm/dL (13.5-17.5); Immature Granulocytes Abs Auto 0.02 K/uL (0.00-0.30); Immature Granulocytes Pct Auto 0.2 %; Lymphocytes Percent Auto 20.9 % (20-44); Mean Corpuscular HGB Conc 34 gm/dL (32-36); Mean Corpuscular Hemoglobin 29 pg (26-34); Mean Corpuscular Volume 85 fL (80-100); Monocytes Percent Auto 7.7 % (0.0-11.0); Neutrophils Percent Auto 70.2 % (42.0-72.0); Platelet Count* 245 K/uL (140-440); RDW Coefficient of Variation % 12.4 % (11.5-15.5); Red Blood Count 4.39 m/uL (4.30-5.90); White Blood Count* 9.56 K/uL (4.50-11.00)
[2023-10-30 01:08] LABS: Slide Review Reflex No
[2023-10-30 01:20] LABS: Chloride* 106 mmol/L (96-114); Potassium* 3.8 mmol/L (3.6-5.1); Sodium* 139 mmol/L (135-149)
[2023-10-30 01:23] LABS: Creatinine* 0.6 mg/dL (0.5-1.5); Est. Creatinine Clearance* 180.81; Estimated Glomerular Filt Rate 131 ml/min
[2023-10-30 01:24] LABS: Anion Gap 5 mEq/L (7-15); Blood Urea Nitrogen* 16 mg/dL (5-24); Calcium* 8.8 mg/dL (8.4-10.6); Carbon Dioxide* 28 mmol/L (20-32); Glucose* 99 mg/dL (60-115)
[2023-10-30 01:26] LABS: C Reactive Protein* 4.9 mg/dL (0.5-1.0)
[2023-10-30 01:44] VITALS: BP 128/74; PULSE 81; RESP 20; TEMP 37.3; O2SAT 99
--- NOTE | 2023-10-30 01:56 | CRLHL7_ITS ---
For Patients: As a result of the Century Cures Act, medical imaging exams and procedure reports are released immediately into your electronic medical record. You may view this report before your referring provider. If you have questions, please contact your health care provider. INDICATION: Hematuria TECHNIQUE: CT Abdomen and pelvis with i.v. Contrast. Coronal and sagittal reformats were obtained. Endorectal contrast was administered for the examination with no radiologist in attendance. CONTRAST: 88 mL Isovue 370 COMPARISON: 10/30/2023 FINDINGS: Lower chest: Unremarkable. Liver: Unremarkable. Spleen: Unremarkable. Pancreas: Unremarkable. Gallbladder: Unremarkable. Kidney: Unremarkable. No kidney or ureteral stones or obstruction seen. Adrenal: Unremarkable. Bowel: Moderate wall thickening with diverticulosis is seen in the proximal sigmoid colon. Infiltration of the surrounding fat is noted. The appendix is normal in appearance and size. Vascular: Unremarkable. Lymph: Unremarkable. Peritoneum: Unremarkable. No pneumoperitoneum is seen. No significant ascites is noted. Pelvis: There is a soft tissue bridge extending from the sigmoid towards the left dome of the bladder where there is a gas and fluid collection possibly within the wall of the bladder measuring 1.8 cm. Severe adjacent and nodular wall thickening of the bladder dome is noted. Soft tissue: Unremarkable. Bone: Unremarkable for age. IMPRESSIONS: 1. Moderate wall thickening with diverticulosis is seen in the proximal sigmoid colon. Infiltration of the surrounding fat is noted. These findings are consistent with acute diverticulitis. 2. There is a soft tissue bridge extending from the sigmoid towards the left dome of the bladder where there is a gas and fluid collection possibly within the wall of the bladder measuring 1.8 cm. Severe adjacent and nodular wall thickening of the bladder dome is noted. This may be due to a mural abscess within the bladder wall. While no contrast communication between the colon and bladder is identified, this does not exclude a colovesicular fistula. Follow-up cystogram after appropriate antibiotic therapy is recommended. Dictated by Max Menchaca MD @ 10/30/2023 3:20:42 AM Please note that all CT scans at this facility use dose modulation, iterative reconstruction, and/or weight-based dosing when appropriate to reduce radiation dose to as low as reasonably achievable. Dictated by: Max Menchaca MD @ 10/30/2023 03:20:46 (Electronically Signed)
--- NOTE | 2023-10-30 02:03 | ED_ITS ---
HPI - General Adult General Chief complaint: Urogenital Problems, Male Stated complaint: Kidney Infection Time Seen by Provider: 10/30/23 00:31 Source: patient Mode of arrival: ambulatory Limitations: no limitations History of Present Illness HPI narrative: Very friendly 33-year-old male with extensive history of prior diverticulitis since age 17 presents to the emergency department for hematuria and right lower back/flank pain. No nausea vomiting, no diarrhea. Does have a little bit of pain at the end of urination but no jimmy dysuria. Hematuria started about 24 hours ago, achy pain. Tried taking some Tylenol and or ibuprofen a couple of days ago with limited improvement. Has not tried subsequent doses. Pain and hematuria worsened while he was at work tonight, causing him to come in for evaluation. No fevers, no vomiting. No prior history of kidney stones. Prior ED notes showing multiple prior bouts of diverticulitis reviewed. Smoker. No prior abdominal surgeries. Past medical history benign per his report. He does not take any prescription medicines, he has no allergies. ROS is notable for the musculoskeletal/GI symptoms as described above, otherwise denies times 12 systems. Related Data Home Medications ?Medication ?Instructions ?Recorded ?Confirmed No Known Home Medications 10/29/23 10/29/23 Allergies Allergy/AdvReac Type Severity Reaction Status Date / Time No Known Drug Allergies Allergy Verified 10/29/23 23:58 [facility] Medical History (Updated 10/30/23 @ 03:45 by Jacque Yanez MD) Diverticulitis ?K57.92 - Diverticulitis of intestine, part unspecified, without perforation or abscess without bleeding (ICD-10) Surgical History (Updated 10/30/23 @ 00:05 by Pierre Dick RN) No significant past surgical history Social History Smoking Status: Current every day smoker Second hand tobacco smoke exposure: No How often do you have a drink containing alcohol: never How often do you have six or more drinks on one occasion: Never AUDIT-C Alcohol total score: 0 Non-prescribed substance use: marijuana (any form) service: No Exam Const: Vital Signs, click to edit/add: Vital Signs - 24 hr 10/29/23 23:56 10/30/23 01:44 10/30/23 03:04 Temperature 99.1 F 99.1 F Pulse Rate [Right Pulse Oximeter] 89 81 79 Respiratory Rate 20 20 16 Blood Pressure [Le ft Upper Arm] 135/75 128/74 141/100 H Pulse Oximetry 99 99 98 Oxygen Delivery Me thod Room Air Room Air Room Air 10/30/23 04:47 10/30/23 05:00 Temperature 99.1 F 98.5 F Pulse Rate [Right Pulse Oximeter] 74 Respiratory Rate 16 Blood Pressure [Le ft Upper Arm] 128/83 Pulse Oximetry 98 Oxygen Delivery Me thod Room Air Documenting provider has reviewed patient's vital signs: yes Common normals: no apparent distress and alert General appearance: cooperative and well kempt HENMT: Common normals: normocephalic Head and scalp: normocephalic Face and sinus: normal facial exam Mouth: oral and palatal mucosa normal Eye: Common normals: conjunctivae normal General eye: normal appearance of both eyes Conjunctiva: conjunctiva(e) normal Neck & C-Spine: Common normals: no lymphadenopathy General: normal visual inspection Resp: Common normals: normal respiratory effort, no use of accessory muscles and clear to auscultation bilaterally Effort & inspection: able to speak in complete sentences Auscultation: clear to auscultation bilaterally Cardio: Common normals: regular rate, regular rhythm, S1 normal heart sound, S2 normal heart sound and no murmurs Rate: regular rate Rhythm: regular rhythm Heart sounds: S1 normal and S2 normal GI: Common normals: Normal to inspection, nondistended, normoactive bowel sounds present, soft to palpation and no masses Palpation: soft Other: Mildly tender suprapubic region only, no rebound tenderness or guarding. : Common normals: no CVA tenderness Bladder/kidney exam: no CVA tenderness Other: Mild tenderness to palpation of right lower lateral back/SI area, not CVA area Back & Pelvis: Common normals: no CVA tenderness Extremity: Common normals: normal to inspection and normal capillary refill Neuro: Sensorium/orientation: alert Speech: speech normal Gait (neuro): normal gait Motor exam: no movement abnormalities noted Psych: Common normals: speech normal Appearance: well kempt Attitude: engaged Activity/motor behavior: appropriate eye contact Speech: normal speech Mood and affect: euthymic mood Insight: insight good Judgement: judgment good Skin: Common normals: no rashes or lesions noted General skin exam: no rashes or lesions noted Course Course ED Course: 33-year-old male with hematuria, present on urinalysis as well. Differential diagnosis including bladder complication, kidney stone, urinary tract infection, kidney disease, nephritis, among multiple others. Urinalysis reviewed, consistent with blood but not really infection. He does also have a low-grade fever. Will obtain a CT of the abdomen and pelvis without contrast initially and obtain some basic labs. Update: CT of the abdomen and pelvis does not show a stone but it does show some concerning diverticulitis changes in some bladder wall thickening that could potentially indicate a fistula. I spoke with the radiologist and they are recommending an MRI, this is not available so we did discuss doing a CT with contrast. They said that this has a good chance of showing what we are looking for if we would use rectal contrast, this will be ordered. Discussed with patient. Did try some Toradol for his pain which did help quite a bit. Counseled him that if the CT is inconclusive, will await MRI in the daylight hours. He was agreeable. Will keep NPO in the interim Reevaluation(s) Reevaluation #1: CT scan with contrast did more clearly show diverticulitis and abscess with impressive bladder wall thickening and some intramural air. The contrast did not get into the bladder but it is still very suspicious for fistula. With this information, I began calling for transfer. For this patient alone, I spoke with ab foster, [place], [facility], [facility], [place] and ultimately was able to obtain placement at [facility] in [facility]. Did consult with the surgeon on-call, Dr. Jackelyn sharpe and ultimately was accepted by Dr. Jackson. Patient had received 1 g of ertapenem and 1 L of normal saline and will be transferring via private car. He was offered ambulance transfer and declined. He understands to remain NPO and to present to [facility]. He verbalizes understanding and agreement. 2 hours were spent by me personally, not including nursing time calling 6 different facilities and speaking with 4 different specialists and consultants ultimately to arrange this transfer. Vital Signs Vital signs: Initial Vital Signs Temperature 99.1 F 10/29/23 23:56 Temperature Source Temporal Artery Scan 10/29/23 23:56 Pulse Rate 89 10/29/23 23:56 Respiratory Rate 20 10/29/23 23:56 Blood Pressure 135/75 10/29/23 23:56 Blood Pressure Mean 95 10/29/23 23:56 Blood Pressure Position Sitting 10/29/23 23:56 Pulse Oximetry 99 10/29/23 23:56 Oxygen Delivery Method Room Air 10/29/23 23:56 Vital Signs Temperature 99.1 F 10/29/23 23:56 Pulse Rate 89 10/29/23 23:56 Respiratory Rate 20 10/29/23 23:56 Blood Pressure 135/75 10/29/23 23:56 Pulse Oximetry 99 10/29/23 23:56 Oxygen Delivery Method Room Air 10/29/23 23:56 Temperature 98.5 F 10/30/23 05:00 Pulse Rate 74 10/30/23 05:00 Respiratory Rate 16 10/30/23 05:00 Blood Pressure 128/83 10/30/23 05:00 Pulse Oximetry 98 10/30/23 05:00 Oxygen Delivery Method Room Air 10/30/23 05:00 Medications Administered Medications: Discontinued Medications Generic Name Dose Route Start Last Admin Trade Name Freq PRN Reason Stop Dose Admin Ertapenem 1 gm/ Sodium 100 mls @ 200 mls/hr 10/30/23 04:15 10/30/23 04:47 Chloride IVPB Infused Q24H MEREDITH Infusion Sodium Chloride 1,000 mls @ 1,000 mls/hr 10/30/23 04:50 10/30/23 05:34 0.9 % Sodium Chloride 1000 Ml IV 10/30/23 05:49 0 mls/hr .Q1H MEREDITH Titration Ketorolac Tromethamine 15 mg 10/30/23 00:57 10/30/23 01:03 Ketorolac 15 Mg/Ml Inj IVP 10/30/23 00:58 15 mg ONCE ONE Administration Medical Decision Making Lab Data Lab results reviewed: Yes I reviewed the patient's lab results Lab results narrative: Elevated CRP, concentrated urine with lots of blood. Labs: Lab Results 10/30/23 10/30/23 Range/Units 00:00 01:00 WBC 9.56 (4.50-11.00) K/uL RBC 4.39 (4.30-5.90) m/uL Hgb 12.6 L (13.5-17.5) gm/dL Hct 37.5 (37.0-53.0) % MCV 85 (80-100) fL MCH 29 (26-34) pg MCHC 34 (32-36) gm/dL RDW Coeff of Simran 12.4 (11.5-15.5) % Plt Count 245 (140-440) K/uL Neut % (Auto) 70.2 (42.0-72.0) % Lymph % (Auto) 20.9 (20-44) % [place] % (Auto) 7.7 (0.0-11.0) % Eos % (Auto) 0.8 (0.0-7.0) % Baso % (Auto) 0.2 (0.0-3.0) % Neut # (Auto) 6.70 (1.7-7.0) K/uL Lymph # (Auto) 2.00 (0.90-2.90) K/uL [place] # (Auto) 0.70 (0.00-0.90) K/UL Eos # (Auto) 0.08 (0.00-0.50) K/uL Baso # (Auto) 0.02 (0.00-0.30) K/uL Abs Immat Gran (auto) 0.02 (0.00-0.30) K/uL Imm/Tot Granulo (auto) 0.2 % Sodium 139 (135-149) mmol/L Potassium 3.8 (3.6-5.1) mmol/L Chloride 106 (96-114) mmol/L Carbon Dioxide 28 (20-32) mmol/L Anion Gap 5 L (7-15) mEq/L BUN 16 (5-24) mg/dL Creatinine 0.6 (0.5-1.5) mg/dL Estimated Creat Clear 180.81 Estimated GFR 131 ml/min Glucose 99 (60-115) mg/dL Calcium 8.8 (8.4-10.6) mg/dL C-Reactive Protein 4.9 H (0.5-1.0) mg/dL Urine Color Yellow (Yellow) Urine Appearance Cloudy A (Clear) Urine pH 6.0 (5.0-8.5) Ur Specific [place] >= 1.030 (1.000-1.030) Urine Protein 3+ A (Negative) Urine Glucose (UA) Negative (Negative) Urine Ketones 4+ A (Negative) Urine Blood 3+ A (Negative) Urine Nitrite Negative (Negative) Urine Bilirubin 1+ A (Negative) Urine Urobilinogen 0.2 (0.2-1.0) Ur Leukocyte Esterase Negative (Negative) Urine RBC 50-100 A (0-2) Urine WBC 5-10 A (0-5) Ur Squamous Epith Cells Few (None-Few) Amorphous Sediment Few A (None) Urine Bacteria Moderate A (None) Imaging Data CT scan - abdomen: Attestation: I have reviewed the pertinent imaging results. My impression: Diverticulitis changes but no obvious stone. I am questioning some bladder wall thickening but uncertain of the etiology Radiologist's impression: IMPRESSION: 1. Ongoing mild acute diverticulitis changes in the proximal sigmoid colon. This abuts the left bladder dome with questionable thin intervening soft tissue tract. 2. Inflammatory changes of the bladder with intraluminal gas. Differential considerations include gas-forming infectious process, recent instrumentation, or colovesical fistula introducing gas into the bladder. 3. No hydronephrosis or obstructing urinary calculi. CT abdomen and pelvis with contrast: Attestation: I have reviewed the pertinent imaging results. My impression: More evidence of potential bladder fistula formation with acute diverticulitis and abscess Radiologist's impression: IMPRESSIONS: 1. Moderate wall thickening with diverticulosis is seen in the proximal sigmoid colon. Infiltration of the surrounding fat is noted. These findings are consistent with acute diverticulitis. 2. There is a soft tissue bridge extending from the sigmoid towards the left dome of the bladder where there is a gas and fluid collection possibly within the wall of the bladder measuring 1.8 cm. Severe adjacent and nodular wall thickening of the bladder dome is noted. This may be due to a mural abscess within the bladder wall. While no contrast communication between the colon and bladder is identified, this does not exclude a colovesicular fistula. Follow-up cystogram after appropriate antibiotic therapy is recommended. 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
[2023-10-30 03:04] VITALS: BP 141/100; PULSE 79; RESP 16; O2SAT 98
[2023-10-30] MEDS: ERTAPENEM 1 GM in 0.9 % SODIUM CHLORIDE Mini-bag 100 ML IVPB (04:17)
[2023-10-30 04:47] VITALS: TEMP 37.3
[2023-10-30 05:00] VITALS: BP 128/83; PULSE 74; RESP 16; TEMP 36.9; O2SAT 98
[2023-10-30] MEDS: 0.9 % SODIUM CHLORIDE 1000 ml 1,000 ML IV (05:00)
== END 2023-10-30 05:34 | disposition short-term general hospital (02) ==
PROVIDERS: Emergency Provider Family Medicine
DX: N32.1 Vesicointestinal fistula (principal)
CPT/HCPCS: 36415; 74176; 74177; 80048; 81001; 85025; 86140; 87086; 96365; 96375; 99284; 99285; J1335; J1885; J7030; Q9967

== ENCOUNTER 2023-12-16 00:01 | Emergency (ER) | payer OTHER, SELFPAY ==
[2023-12-16 00:10] VITALS: BP 163/95; PULSE 85; RESP 16; TEMP 35.8; O2SAT 98; BMI 24.4
--- NOTE | 2023-12-16 00:25 | CRLHL7_ITS ---
For Patients: As a result of the Century Cures Act, medical imaging exams and procedure reports are released immediately into your electronic medical record. You may view this report before your referring provider. If you have questions, please contact your health care provider. Indication: Lower abdominal pain, history of diverticulitis with fistula Technique: CT through the abdomen and pelvis following 83 mL Isovue 370 IV contrast Comparison: CT abdomen pelvis performed 10/30/2023 Findings: Lower chest: No acute abnormality appreciated. Hepatobiliary: No significant parenchymal abnormality is appreciated. Spleen: Unremarkable. Pancreas: No acute abnormality appreciated. Adrenal glands: No acute abnormality appreciated. Kidneys: No significant parenchymal abnormality appreciated. No visualized calculi. No hydronephrosis. Bowel: No obstruction. Again noted is sigmoid wall thickening and adjacent stranding with fistulization to the bladder wall, which is edematous and demonstrates a small possible abscess within the adjacent wall. This fluid collection has increased in size from prior examination, while the remaining findings of wall thickening and stranding are not significantly changed. The appendix is visualized and appears unremarkable. Vascular: No acute abnormality appreciated. Lymph nodes: No gross lymphadenopathy. Peritoneum: No free air. No free fluid. : As above. Soft tissues: No acute abnormality appreciated. Bones: No acute fracture. No lytic or blastic lesion. Impression: Again noted are findings of sigmoid diverticulitis with fistulization to the bladder. Compared to examination from 10/30/2023, there is an increased size of a presumed abscess which abuts and may be within the involved bladder wall. Please note that all CT scans at this facility use dose modulation, iterative reconstruction, and/or weight-based dosing when appropriate to reduce radiation dose to as low as reasonably achievable. Dictated by Uriah Jones MD @ 12/16/2023 1:40:14 AM (Electronically Signed)
--- NOTE | 2023-12-16 00:26 | ED.GENADULT ---
HPI - General Adult General Chief complaint: Abdominal Pain Stated complaint: Abdominal pain Time Seen by Provider: 12/16/23 00:04 Source: patient Mode of arrival: ambulatory Limitations: no limitations History of Present Illness HPI narrative: 33-year-old male with notable history of recurrent diverticulitis and known bladder/colon fistula diagnosis 7 weeks ago presents to the ED with recurrence of lower abdominal pain. I last evaluated patient is 7 weeks ago. At that time had acute diverticulitis with signs of abscess and fistula formation with bladder. Ultimately, he was transferred to [facility] and received IV antibiotics. He has a colonoscopy and cystoscopy planned in a few weeks and is then planning to have resection of the sigmoid colon and reduction of the fistula at that time. A pain has been present for the past 5 days, 3 of a 10 and achy in nature accompanied by decreased appetite. He is still able to eat but his pain does worsen with eating. Pain also worsens with attempts to have a bowel movement. Has been having some mucousy blood streaked stools for the last couple of days but no heavy jimmy bleeding. He had hematuria with his last bout of symptoms 7 weeks ago but that resolved after about 2 weeks on antibiotics and has not since recurred. He is not having any fever or vomiting. No new injury or trauma. Has not tried any interventions at home prior to coming to the ED in the middle of the night. Pain 3/10 at rest, does increase to 10/10 with eating and attempt to have a bowel movement. Pain is located in the lower central abdomen around the bladder area. Past medical history is fairly benign with the exception of the recurrent diverticulitis. He also had an abdominal surgery which ultimately resulted in some sort of a drain in the upper part of his abdomen at age 16 but the details of this are quite unclear. No other abdominal surgeries. No long-term medications. Has not been on antibiotics for over a month. smoker, no other unusual social habits. ROS is notable for the abdominal symptoms as above only, otherwise denies times 12 systems. Related Data Previous Rx's ?Medication ?Instructions ?Recorded levofloxacin 750 mg tablet 750 mg PO Q24H #10 tabs 12/16/23 metronidazole 500 mg tablet 500 mg PO Q8H #30 tabs 12/16/23 Allergies Allergy/AdvReac Type Severity Reaction Status Date / Time No Known Drug Allergies Allergy Verified 10/29/23 23:58 PFSH PFSH Medical History Diverticulitis ?K57.92 - Diverticulitis of intestine, part unspecified, without perforation or abscess without bleeding (ICD-10) Surgical History No significant past surgical history Social History Smoking Status: Current every day smoker Second hand tobacco smoke exposure: No How often do you have a drink containing alcohol: never How often do you have six or more drinks on one occasion: Never AUDIT-C Alcohol total score: 0 Non-prescribed substance use: marijuana (any form) service: No Exam Const: Vital Signs, click to edit/add: Vital Signs - 24 hr 12/16/23 00:10 Temperature 96.5 F L Pulse Rate [Pulse Oximeter] 85 Respiratory Rate 16 Blood Pressure [Ri ght Upper Arm] 163/95 H Pulse Oximetry 98 Documenting provider has reviewed patient's vital signs: yes Common normals: no apparent distress General appearance: cooperative, comfortable and well kempt HENMT: Common normals: normocephalic Head and scalp: normocephalic Face and sinus: normal facial exam Mouth: oral and palatal mucosa normal Throat: posterior oropharynx normal Eye: Common normals: conjunctivae normal General eye: normal appearance of both eyes Conjunctiva: conjunctiva(e) normal Resp: Common normals: normal respiratory effort, no use of accessory muscles and clear to auscultation bilaterally Effort & inspection: able to speak in complete sentences Auscultation: clear to auscultation bilaterally Cardio: Common normals: regular rate, regular rhythm, S1 normal heart sound, S2 normal heart sound and no murmurs Rate: regular rate Rhythm: regular rhythm Heart sounds: S1 normal and S2 normal GI: Common normals: Normal to inspection, nondistended, normoactive bowel sounds present Other: Tender to palpation of suprapubic area. No obvious guarding or mass. Liver and spleen are not enlarged. Back & Pelvis: Common normals: thoracic and lumbar spine normal to inspection Extremity: Common normals: normal to inspection, normal capillary refill and no pedal edema Neuro: Speech: speech normal Gait (neuro): normal gait Motor exam: strength 5/5 throughout and no movement abnormalities noted Psych: Common normals: thought process normal Appearance: well kempt Attitude: engaged Activity/motor behavior: appropriate eye contact Mood and affect: euthymic mood Thought process: normal thought process Insight: insight good Judgement: judgment good Skin: Common normals: no rashes or lesions noted General skin exam: no rashes or lesions noted Course Course ED Course: Lower abdominal pain suspicious for acute diverticulitis but with his history of known prior abscess and fistula, concerning for more extensive infection or complication. Would recommend CT, typical labs. He declines pain medication for now. CT will help me understand if he needs transfer, drainage, IV antibiotics or if by some good chance he could be treated with oral antibiotics. Patient had initially requested that we bypassed the CT and just prescribe oral antibiotics but does understand after my discussion of rationale my more extensive testing would be better. Await findings. Reevaluation(s) Time of Reevaluation #1: 01:47 Reevaluation #1: Counseled patient on findings. Still has persistent abscess and fistula but no real new findings. He is afebrile, not showing any signs of sepsis. There is no leukocytosis or even elevated inflammatory markers. I suspect that he is starting to have new inflammation and or slight worsening of already existing known abscess. Will give dose of IV ertapenem and restart level floxacillin and Flagyl. Does have contact information for his surgical team through [employer] and can contact them if he is not starting to notice improvement in 48 hours. Alarm symptoms like high fever, persistent vomiting, weakness were all reviewed as indications to come back to our ED right away. He was comfortable with this plan. Vital Signs Vital signs: Initial Vital Signs Temperature 96.5 F L 12/16/23 00:10 Temperature Source Temporal Artery Scan 12/16/23 00:10 Pulse Rate 85 12/16/23 00:10 Respiratory Rate 16 12/16/23 00:10 Blood Pressure 163/95 H 12/16/23 00:10 Blood Pressure Mean 117 H 12/16/23 00:10 Blood Pressure Position Sitting 12/16/23 00:10 Pulse Oximetry 98 12/16/23 00:10 Vital Signs Temperature 96.5 F L 12/16/23 00:10 Pulse Rate 85 12/16/23 00:10 Respiratory Rate 16 12/16/23 00:10 Blood Pressure 163/95 H 12/16/23 00:10 Pulse Oximetry 98 12/16/23 00:10 Temperature 96.5 F L 12/16/23 00:10 Pulse Rate 85 12/16/23 00:10 Respiratory Rate 16 12/16/23 00:10 Blood Pressure 163/95 H 12/16/23 00:10 Pulse Oximetry 98 12/16/23 00:10 Medications Administered Medications: Generic Name Dose Route Start Last Admin Trade Name Freq PRN Reason Stop Dose Admin Ertapenem 1 gm/ Sodium 100 mls @ 200 mls/hr 12/16/23 01:45 12/16/23 01:51 Chloride IVPB 12/16/23 01:46 200 mls/hr ONCE ONE Administration Medical Decision Making Lab Data Lab results reviewed: Yes I reviewed the patient's lab results Lab results narrative: Labs are surprisingly reassuring. CRP looks great, no leukocytosis. Labs: Lab Results 12/16/23 12/16/23 Range/Units 00:35 00:58 WBC 7.42 (4.50-11.00) K/uL RBC 4.42 (4.30-5.90) m/uL Hgb 12.8 L (13.5-17.5) gm/dL Hct 38.4 (37.0-53.0) % MCV 87 (80-100) fL MCH 29 (26-34) pg MCHC 33 (32-36) gm/dL RDW Coeff of Simran 13.0 (11.5-15.5) % Plt Count 203 (140-440) K/uL Neut % (Auto) 61.1 (42.0-72.0) % Lymph % (Auto) 28.8 (20-44) % [place] % (Auto) 7.3 (0.0-11.0) % Eos % (Auto) 2.3 (0.0-7.0) % Baso % (Auto) 0.4 (0.0-3.0) % Neut # (Auto) 4.53 (1.7-7.0) K/uL Lymph # (Auto) 2.14 (0.90-2.90) K/uL [place] # (Auto) 0.50 (0.00-0.90) K/UL Eos # (Auto) 0.17 (0.00-0.50) K/uL Baso # (Auto) 0.03 (0.00-0.30) K/uL Abs Immat Gran (auto) 0.01 (0.00-0.30) K/uL Imm/Tot Granulo (auto) 0.1 % Sodium 138 (135-149) mmol/L Potassium 3.7 (3.6-5.1) mmol/L Chloride 106 (96-114) mmol/L Carbon Dioxide 27 (20-32) mmol/L Anion Gap 5 L (7-15) mEq/L BUN 16 (5-24) mg/dL Creatinine 0.6 (0.5-1.5) mg/dL Estimated Creat Clear 180.81 Estimated GFR 131 ml/min Glucose 101 (60-115) mg/dL Lactate 0.9 (0.5-1.9) mmol/L Calcium 9.1 (8.4-10.6) mg/dL Total Bilirubin 0.5 (0.1-1.5) mg/dL AST 29 (12-35) U/L ALT 25 (4-50) U/L Alkaline Phosphatase 74 (40-150) U/L C-Reactive Protein 0.7 (0.5-1.0) mg/dL Total Protein 7.0 (6.0-8.3) g/dL Albumin 4.2 (3.3-5.0) g/dL Lipase 54 (23-300) U/L Urine Color Yellow (Yellow) Urine Appearance Clear (Clear) Urine pH 6.5 (5.0-8.5) Ur Specific [place] 1.015 (1.000-1.030) Urine Protein Negative (Negative) Urine Glucose (UA) Negative (Negative) Urine Ketones Negative (Negative) Urine Blood Negative (Negative) Urine Nitrite Negative (Negative) Urine Bilirubin Negative (Negative) Urine Urobilinogen 0.2 (0.2-1.0) Ur Leukocyte Esterase Negative (Negative) Imaging Data CT scan - pelvis: Attestation: I have reviewed the pertinent imaging results. My impression: Persistent inflammation and what looks to be an abscess on the right edge of the bladder. To me, it looks pretty similar to 6 weeks ago with no other new findings. Radiologist's impression: Findings: Lower chest: No acute abnormality appreciated. Hepatobiliary: No significant parenchymal abnormality is appreciated. Spleen: Unremarkable. Pancreas: No acute abnormality appreciated. Adrenal glands: No acute abnormality appreciated. Kidneys: No significant parenchymal abnormality appreciated. No visualized calculi. No hydronephrosis. Bowel: No obstruction. Again noted is sigmoid wall thickening and adjacent stranding with fistulization to the bladder wall, which is edematous and demonstrates a small possible abscess within the adjacent wall. This fluid collection has increased in size from prior examination, while the remaining findings of wall thickening and stranding are not significantly changed. The appendix is visualized and appears unremarkable. Vascular: No acute abnormality appreciated. Lymph nodes: No gross lymphadenopathy. Peritoneum: No free air. No free fluid. : As above. Soft tissues: No acute abnormality appreciated. Bones: No acute fracture. No lytic or blastic lesion. Impression: Again noted are findings of sigmoid diverticulitis with fistulization to the bladder. Compared to examination from 10/30/2023, there is an increased size of a presumed abscess which abuts and may be within the involved bladder wall. Discharge Plan Discharge Clinical Impression: Colonic diverticular abscess, [place]-vesical fistula Patient Disposition: Home, Self-Care Condition: Stable Instructions: Diverticulitis (DC) Additional Instructions: As we discussed, there are no new findings on the CT. The abscess does look slightly bigger than last time but not overwhelmingly larger. This is not new information. There does not seem to be any more invasion into the bladder but certainly this is still present and has not healed in the meantime. Keep your plan in a couple of weeks for the colonoscopy and cystoscopy to plan for surgery. We have given you a dose of ertapenem which is an IV antibiotic tonight. superintendent sales the level floxacillin and metronidazole at your pharmacy today and start these this afternoon. Follow the instructions for dosing. It is okay to use Tylenol and/or ibuprofen as needed for discomfort. Continue to drink lots of fluids. If you start having high fevers, persistent vomiting, lots of blood or other signs of weakness or worsening sickness, please come back to the emergency room. If your symptoms are not improving within a few days, we may need to contact the surgical team for a more urgent procedure. I am hoping that the antibiotics can calm things down again like they did in October. Activity Level: No Restrictions Discharge Diet: Regular Prescriptions: New metronidazole 500 mg tablet 500 mg PO Q8H Qty: 30 0RF levofloxacin 750 mg tablet 750 mg PO Q24H Qty: 10 0RF Follow Up/Referrals: Provider,Not a Local [Primary Care Provider] - Stand Alone Forms: [employer] Info Instructions
[2023-12-16 00:41] LABS: Lactate* 0.9 mmol/L (0.5-1.9)
[2023-12-16 00:42] LABS: Basophils Absolute Auto 0.03 K/uL (0.00-0.30); Basophils Percent Auto 0.4 % (0.0-3.0); Eosinophils Absolute Auto 0.17 K/uL (0.00-0.50); Eosinophils Percent Auto 2.3 % (0.0-7.0); Hematocrit 38.4 % (37.0-53.0); Hemoglobin* 12.8 gm/dL (13.5-17.5); Immature Granulocytes Abs Auto 0.01 K/uL (0.00-0.30); Immature Granulocytes Pct Auto 0.1 %; Lymphocytes Absolute Auto 2.14 K/uL (0.90-2.90); Lymphocytes Percent Auto 28.8 % (20-44); Mean Corpuscular HGB Conc 33 gm/dL (32-36); Mean Corpuscular Hemoglobin 29 pg (26-34); Mean Corpuscular Volume 87 fL (80-100); Monocytes Percent Auto 7.3 % (0.0-11.0); Neutrophils Absolute Auto 4.53 K/uL (1.7-7.0); Neutrophils Percent Auto 61.1 % (42.0-72.0); Platelet Count* 203 K/uL (140-440); Red Blood Count 4.42 m/uL (4.30-5.90); White Blood Count* 7.42 K/uL (4.50-11.00)
[2023-12-16 00:46] LABS: Slide Review Reflex No
[2023-12-16 01:02] LABS: Albumin* 4.2 g/dL (3.3-5.0)
[2023-12-16 01:05] LABS: Alkaline Phosphatase* 74 U/L (40-150); Aspartate Amino Transferase* 29 U/L (12-35); Bilirubin Total* 0.5 mg/dL (0.1-1.5); Carbon Dioxide* 27 mmol/L (20-32); Creatinine* 0.6 mg/dL (0.5-1.5); Est. Creatinine Clearance* 180.81; Estimated Glomerular Filt Rate 131 ml/min; Lipase* 54 U/L (23-300)
[2023-12-16 01:06] LABS: Alanine Aminotransferase* 25 U/L (4-50); Blood Urea Nitrogen* 16 mg/dL (5-24); Calcium* 9.1 mg/dL (8.4-10.6); Glucose* 101 mg/dL (60-115)
[2023-12-16 01:07] LABS: Appearance Urine Clear (Clear); Bilirubin Urine Negative (Negative); Blood Urine Negative (Negative); Color Urine Yellow (Yellow); Glucose Urine Negative (Negative); Ketones Urine Negative (Negative); Leukocyte Esterase Urine Negative (Negative); Nitrite Urine Negative (Negative); Protein Urine Negative (Negative); Specific Gravity Urine 1.015 (1.000-1.030); Urobilinogen Urine 0.2 (0.2-1.0); pH Urine 6.5 (5.0-8.5)
[2023-12-16 01:08] LABS: C Reactive Protein* 0.7 mg/dL (0.5-1.0)
[2023-12-16 01:35] LABS: Anion Gap 5 mEq/L (7-15); Chloride* 106 mmol/L (96-114); Potassium* 3.7 mmol/L (3.6-5.1); Sodium* 138 mmol/L (135-149)
[2023-12-16] MEDS: ERTAPENEM 1 GM in 0.9 % SODIUM CHLORIDE Mini-bag 100 ML IVPB (01:51)
== END 2023-12-16 02:25 | disposition home or self-care (01) ==
PROVIDERS: Emergency Provider Family Medicine
DX: K57.80 Diverticulitis of intestine, part unspecified, with perforation and abscess without bleeding (principal); N32.1 Vesicointestinal fistula
CPT/HCPCS: 36415; 74177; 80053; 81003; 83605; 83690; 85025; 86140; 96365; 99284; J1335; Q9967